=== PATIENT | male | born 1975 | race African-American/Black ===

== ENCOUNTER 2017-07-03 22:01 | Emergency (ER) | payer OTHER ==
[2017-07-03 23:24] LABS: #Basophils 0.1 thou/uL (0.0-0.2); #Eosinphils 0.1 thou/uL (0.0-0.7); #Lymphocytes 1.7 thou/uL (1.20-3.40); #Monocytes 0.4 thou/uL (0.11-0.59); #Neutrophils 7.4 thou/uL (1.40-6.50); %Basophils 0.7 % (0.0-1.0); %Eosinophils 1.2 % (0.0-10.0); %Lymphocytes 17.5 % (21.0-51.0); %Monocytes 4.4 % (0.0-10.0); Hematocrit 49.3 % (42.0-52.0); Mean Platelet Volume 7.8 fL (7.4-10.4); Red Blood Cell (RBC) Count 4.94 mill/uL (4.70-6.10); White Blood Cell (WBC) Count 9.7 thou/uL (4.8-10.8)
[2017-07-03] MEDS ORDERED: Ondansetron HCl/PF 4 MG/2 ML Vial ONE (23:35)
[2017-07-03 23:46] LABS: ALT (SGPT) 18 U/L (8-55); AST (SGOT) 19 U/L (5-34); Alkaline Phosphatase 60 U/L (40-150); Anion Gap 15 mmol/L (10-20); BUN (Urea Nitrogen) 13 mg/dL (8.9-20.6); Bilirubin, Total 0.7 mg/dL (0.2-1.2); Calc. Creatinine Clearance 0 mL/min (70-130); Calcium 8.9 mg/dL (7.8-10.44); Carbon Dioxide 25 mmol/L (22-29); Chloride 106 mmol/L (98-107); Estimated GFR-MDRD Greater than 90; Globulin 3.1 g/dL (2.4-3.5); Lipase 76 U/L (8-78); Protein, Total 6.9 g/dL (6.0-8.3)
== END 2017-07-04 00:43 | disposition home or self-care (01) ==
LOC: ERS 22:01
DX: K52.9 Noninfective gastroenteritis and colitis, unspecified (principal); J44.9 Chronic obstructive pulmonary disease, unspecified; F31.9 Bipolar disorder, unspecified; F41.9 Anxiety disorder, unspecified; F17.210 Nicotine dependence, cigarettes, uncomplicated; Z79.899 Other long term (current) drug therapy
CPT/HCPCS: 36415; 80053; 83690; 85025; 96374; J2405

== ENCOUNTER 2017-07-26 11:13 | Emergency (ER) | payer OTHER ==
[2017-07-26 11:38] LABS: #Basophils 0.1 thou/uL (0.0-0.2); #Eosinphils 0.1 thou/uL (0.0-0.7); #Monocytes 0.4 thou/uL (0.11-0.59); #Neutrophils 2.6 thou/uL (1.40-6.50); %Basophils 2.2 % (0.0-1.0); %Eosinophils 1.5 % (0.0-10.0); %Lymphocytes 48.1 % (21.0-51.0); %Monocytes 6.1 % (0.0-10.0); Hematocrit 52.1 % (42.0-52.0); Mean Platelet Volume 7.9 fL (7.4-10.4); Red Blood Cell (RBC) Count 5.26 mill/uL (4.70-6.10); White Blood Cell (WBC) Count 6.2 thou/uL (4.8-10.8)
[2017-07-26 12:02] LABS: ALT (SGPT) 12 U/L (8-55); AST (SGOT) 17 U/L (5-34); Acetaminophen Less than 6.0 mcg/mL (10.0-30.0); Alkaline Phosphatase 66 U/L (40-150); Anion Gap 11 mmol/L (10-20); BUN (Urea Nitrogen) 8 mg/dL (8.9-20.6); Bilirubin, Total 0.9 mg/dL (0.2-1.2); CK (CPK) 619 U/L (30-200); Calc. Creatinine Clearance 0 mL/min (70-130); Calcium 9.1 mg/dL (7.8-10.44); Carbon Dioxide 28 mmol/L (22-29); Chloride 105 mmol/L (98-107); Estimated GFR-MDRD Greater than 90; Globulin 3.3 g/dL (2.4-3.5); Protein, Total 7.1 g/dL (6.0-8.3); Salicylate Less than 8.0 mg/dL (15.0-30.0)
[2017-07-26 13:12] LABS: Bilirubin Small (Negative); Blood, Urine Negative (Negative); Glucose, Urine (Dipstick) Negative (Negative); Ketone, Urine Trace mg/dL (Negative); Nitrite Negative (Negative); Protein, Urine (Dipstick) 30 mg/dL (Neg-Trace)
[2017-07-26 13:15] LABS: Bacteria/HPF None Seen HPF (None Seen); Hyaline Casts/LPF 0-3 HYALINE CAST LPF (0-3 Hyaline); RBC/HPF 0-3 HPF (0-3); Squamous Epithelial None Seen HPF (0-3); WBC/HPF 0-3 HPF (0-3)
[2017-07-26 13:25] LABS: Amphetamine Not Detected (NotDetected); Methadone Not Detected (NotDetected); Methamphetamine Not Detected (NotDetected)
== END 2017-07-26 21:29 ==
LOC: ERS 11:13
DX: F16.10 Hallucinogen abuse, uncomplicated (principal); F12.10 Cannabis abuse, uncomplicated; R45.851 Suicidal ideations; J44.9 Chronic obstructive pulmonary disease, unspecified; F41.9 Anxiety disorder, unspecified; F31.9 Bipolar disorder, unspecified; F17.210 Nicotine dependence, cigarettes, uncomplicated
CPT/HCPCS: 36415; 80053; 80306; 80307; 81003; 81015; 82550; 84443; 85025; 99285

== ENCOUNTER 2017-09-01 10:51 | Emergency (ER) | payer OTHER ==
[2017-09-01] MEDS ORDERED: Ketorolac Tromethamine 30 MG/ML VIAL ONE (12:28)
--- NOTE | 2017-09-01 14:43 | RAD ---
THREE VIEWS RIGHT FOOT: DATE: 09/01/17. HISTORY: Right foot pain. History of right foot surgery on 08/11/17. FINDINGS: There are postsurgical changes involving the right 1st and 2nd metatarsals likely related to osteotom ies with single screws overlying the distal aspect of the 1st and 2nd metatarsals. No acute fracture or dislocation is seen. Lisfranc joint is normally aligned. Minimal subcutaneous soft tissue swell ing is seen at the dorsal aspect of the forefoot. IMPRESSION: Postsurgical changes related to osteotomies involving the distal 1st and 2nd right metatarsals. No o ther acute osseous abnormality is seen. POS: [facility]
== END 2017-09-01 13:20 | disposition home or self-care (01) ==
LOC: ERS 10:51
DX: M25.474 Effusion, right foot (principal); J44.9 Chronic obstructive pulmonary disease, unspecified; F31.9 Bipolar disorder, unspecified; F41.9 Anxiety disorder, unspecified; F17.210 Nicotine dependence, cigarettes, uncomplicated
CPT/HCPCS: 96372; J1885

== ENCOUNTER 2017-12-07 19:36 | Inpatient (IN) | payer OTHER ==
[2017-12-07 20:08] LABS: #Basophils 0.1 thou/uL (0.0-0.2); #Eosinphils 0.2 thou/uL (0.0-0.7); #Lymphocytes 2.7 thou/uL (1.20-3.40); #Monocytes 0.7 thou/uL (0.11-0.59); %Eosinophils 2.3 % (0.0-10.0); %Lymphocytes 35.2 % (21.0-51.0); %Monocytes 8.5 % (0.0-10.0); Mean Corpuscular HGB CONC 33.5 g/dL (32.0-36.0); Mean Corpuscular Hemoglobin 32.8 pg (27.0-31.0); Mean Corpuscular Volume 98.1 fl (80.0-94.0); Mean Platelet Volume 8.5 fL (7.4-10.4); Platelet Count 169 thou/uL (130-400); RBC Distribution Width 12.3 % (11.5-14.5); Red Blood Cell (RBC) Count 4.28 mill/uL (4.70-6.10); White Blood Cell (WBC) Count 7.6 thou/uL (4.8-10.8)
[2017-12-07] MEDS ORDERED: Ondansetron HCl/PF 4 MG/2 ML Vial IV PRN (20:09)
[2017-12-07] MEDS ORDERED: Acetaminophen 325 MG TAB PO PRN (20:09)
[2017-12-07] MEDS ORDERED: Fentanyl 100 MCG/2 ML VIAL ONE (20:12)
[2017-12-07] MEDS ORDERED: RENALLY ADJUST ANTIBIOTICS FS PRN (20:15)
[2017-12-07 20:30] LABS: ALT (SGPT) 7 U/L (8-55); AST (SGOT) 13 U/L (5-34); Albumin 4.1 g/dL (3.5-5.0); Alkaline Phosphatase 76 U/L (40-150); Anion Gap 11 mmol/L (10-20); BUN (Urea Nitrogen) 11 mg/dL (8.9-20.6); Bilirubin, Total 0.6 mg/dL (0.2-1.2); CRP (Inflammatory) 4.75 mg/dL (= or < 0.5); Calc. Creatinine Clearance 0 mL/min (70-130); Calcium 9.6 mg/dL (7.8-10.44); Carbon Dioxide 27 mmol/L (22-29); Chloride 107 mmol/L (98-107); Estimated GFR-MDRD Greater than 90; Globulin 3.8 g/dL (2.4-3.5); Glucose 92 mg/dL (70-105); Protein, Total 7.9 g/dL (6.0-8.3); Sodium 141 mmol/L (136-145)
[2017-12-07] MEDS: HYDROcodone/Acetaminophen 5/325 mg Tablet PO PRN ×2 (22:01→22:10)
--- NOTE | 2017-12-07 22:05 | RAD ---
PORTABLE AP CHEST X-RAY 12/07/17 HISTORY: Preoperative evaluation. COMPARISON: 05/15/17. FINDINGS: Cardiac silhouette is magnified by projection. Pulmonary vasculature is within normal limits. The zohra gs are clear. There has been no interval change from prior exam. IMPRESSION: No acute cardiopulmonary process. POS: [facility]
--- NOTE | 2017-12-07 22:08 | RAD ---
THREE VIEWS LEFT HAND 12/07/17 HISTORY: Left hand pain and swelling for three days. COMPARISON: 07/18/16. FINDINGS: There is no evidence of a fracture, dislocation, or other osseous abnormality. There has been no inte rval change when compared to the prior exam. IMPRESSION: No acute osseous abnormality left hand. POS: [facility]
--- NOTE | 2017-12-07 22:16 | HP ---
CHIEF COMPLAINT: Left hand pain. HISTORY OF PRESENT ILLNESS: Mr. Lyman is a 42-year-old male who has developed a 1 day history of wo rsening left fourth digit and palm pain. He developed swelling and erythema of the digit. He has a history of thenar abscess approximately 2 years ago which was treated with I and D. He says this fee ls similar to his left hand infection. He denies any injury or wound to the hand, no recent insect b ites he reports. He has had low grade fever he reports at home. PAST MEDICAL HISTORY: Bipolar disorder, previous abscess and asthma or mild COPD. SOCIAL HISTORY: The patient denies alcohol or drug use. He smokes cigarettes daily. FAMILY MEDICAL HISTORY: Noncontributory. MEDICATIONS: The patient is not on any medications currently. ALLERGIES: Negative. REVIEW OF SYSTEMS: Positive for left hand pain. PHYSICAL EXAMINATION: VITAL SIGNS: The patient's vital signs stable. He is afebrile. He is normotensive. GENERAL: He is alert, sitting upright in no apparent distress. RESPIRATORY: Breathing comfortably. ABDOMEN: Soft, nontender, nondistended. MUSCULOSKELETAL: The patient's left hand has swelling and erythema over the palmar aspect of the fou rth digit. There is fusiform swelling between the MCP joint and PIP joint. He has pain to palpation and pain with motion. He has tenderness along the palm as well. Two second capillary refill. No a ctive wound drainage. IMAGES: X-rays of the hand are negative. LABORATORY STUDIES: Include white blood cell count which is 7.6. Remaining labs are pending. IMPRESSION: Left hand abscess with possible underlying flexor tenosynovitis. PLAN: At this point, the patient will need to go to the operating room tomorrow morning for irrigati on and debridement of the hand abscess and flexor tendon. He will be started on vancomycin and Rocep hin. He will have adequate pain control. He will elevate the hand. He will be n.p.o. at midnight. He is aware of the severity of his condition and all risks have been reviewed. Risks do include fur ther infection, wound complication, nerve or vascular injury, loss of digit and others.
[2017-12-07 22:21] VITALS: BMI 29.2
[2017-12-08] MEDS: Ketorolac Tromethamine 30 MG/ML VIAL IVP SCH ×5 (00:03→23:32)
[2017-12-08] MEDS ORDERED: Ondansetron HCl/PF 4 MG/2 ML Vial ONE (07:08)
[2017-12-08] MEDS ORDERED: Dexamethasone 20 MG/5 ML VIAL ONE (07:08)
[2017-12-08] MEDS ORDERED: PROPOFOL 200 MG/20 ML VIAL ONE (07:08)
[2017-12-08] MEDS ORDERED: Lidocaine 1% PF 5 ML VIAL ONE (07:08)
[2017-12-08] MEDS ORDERED: FLU VACC QS2017-18 36 mo. & older 0.5 ML SYRINGE IM ONE (09:00)
[2017-12-08] MEDS: Vancomycin HCl 1.5 GM in Sodium Chloride 0.9% 250 ML 300 ML IVPB SCH ×2 (09:03→21:41)
[2017-12-08] MEDS ORDERED: Fentanyl 250 MCG/5 ML VIAL ONE ×2 (09:44→10:35)
[2017-12-08] MEDS ORDERED: Midazolam HCl 2 mg/2 ml Vial ONE ×2 (09:44→10:35)
[2017-12-08] MEDS ORDERED: Neomycin-Polymyxin 1 ML AMP ONE ×2 (09:46→10:36)
[2017-12-08] MEDS ORDERED: Bupivacaine 0.25% HCL 30 ML VIAL ONE ×2 (09:46→10:36)
[2017-12-08] MEDS ORDERED: Ondansetron HCl/PF 4 MG/2 ML Vial IVP PRN (11:39)
[2017-12-08] MEDS ORDERED: Promethazine HCl 25 MG/ML VIAL IM PRN (11:39)
[2017-12-08] MEDS ORDERED: Promethazine HCl 25 MG/ML VIAL SLOW IVP PRN (11:39)
--- NOTE | 2017-12-08 15:40 | OP ---
DATE OF PROCEDURE: 12/08/2017 OPERATION: Left fourth finger abscess, irrigation and debridement. PREOPERATIVE DIAGNOSIS: Left fourth finger abscess. POSTOPERATIVE DIAGNOSIS: Left fourth finger abscess. COMPLICATIONS: None. ESTIMATED BLOOD LOSS: Minimal. SURGEON: Michele Rivera M.D. ANESTHESIA: General plus local. IMPLANTS: None. INDICATIONS FOR PROCEDURE: Mr. Lyman is a 42-year-old male who has a heavy smoking history. He was found to have an abscess on the 4th palmar surface of the finger as well as possible underlying flex or tenosynovitis. He was admitted to the hospital and started on intravenous antibiotics. He has fa iled to improve and has been indicated now for irrigation and debridement in the operating room. Ris ks have been reviewed and he has elected to proceed with the operation. DESCRIPTION OF PROCEDURE: Mr. Lyman was identified in the preoperative holding area. His correct e xtremity was marked. He was carried to the operating room. He was positioned supine. General anest hesia was induced. Local anesthetic was injected about the finger. The hand was prepped and draped in sterile fashion. At this point, we proceeded with an incision centered over the palmar surface of the fourth finger. We created a Z-type incision and raised a small flap. We encountered gross puru lence. This was cultured. We evacuated the purulent material and thoroughly irrigated with copious lavage. We excisionally removed any nonviable appearing subcutaneous tissue. We then opened the ten don sheath and this was thoroughly irrigated as well. There was not significant material in the tend on sheath. We packed the wound and loosely closed with a 4-0 nylon suture. A sterile dressing was a pplied. The patient was taken to the recovery room in good condition at this point without complicat ion.
[2017-12-08] MEDS: HYDROcodone/Acetaminophen 5/325 mg Tablet PO PRN ×2 (17:33→21:42)
[2017-12-08] MEDS: cefTRIAXone\\ROCEPHIN 1 GM, Syringe 0.4 ML in Sterile Water 9.6 ML SLOW IVP SCH (19:28)
[2017-12-09] MEDS: Fentanyl 100 MCG/2 ML VIAL SLOW IVP PRN (02:04)
[2017-12-09 05:36] LABS: #Lymphocytes 2.2 thou/uL (1.20-3.40); #Monocytes 0.6 thou/uL (0.11-0.59); #Neutrophils 7.8 thou/uL (1.40-6.50); %Basophils 0.2 % (0.0-1.0); %Eosinophils 0.1 % (0.0-10.0); %Lymphocytes 20.5 % (21.0-51.0); %Monocytes 5.9 % (0.0-10.0); %Neutrophils 73.4 % (42.0-75.0); Hemoglobin 13.8 g/dL (14.0-18.0); Mean Corpuscular HGB CONC 33.9 g/dL (32.0-36.0); Mean Corpuscular Hemoglobin 33.2 pg (27.0-31.0); Mean Corpuscular Volume 97.8 fl (80.0-94.0); Mean Platelet Volume 8.7 fL (7.4-10.4); Platelet Count 174 thou/uL (130-400); RBC Distribution Width 12.2 % (11.5-14.5); Red Blood Cell (RBC) Count 4.17 mill/uL (4.70-6.10); White Blood Cell (WBC) Count 10.7 thou/uL (4.8-10.8)
[2017-12-09] MEDS: HYDROcodone/Acetaminophen 5/325 mg Tablet PO PRN ×2 (06:05→16:08)
[2017-12-09 08:33] LABS: Vancomycin, Trough 13.3 ug/mL
[2017-12-09] MEDS: Vancomycin HCl 1.5 GM in Sodium Chloride 0.9% 250 ML 300 ML IVPB SCH ×2 (09:44→21:15)
[2017-12-09] MEDS: traMADol HCl 50 MG TAB PO PRN ×2 (09:44→21:16)
[2017-12-09] MEDS: cefTRIAXone\\ROCEPHIN 1 GM, Syringe 0.4 ML in Sterile Water 9.6 ML SLOW IVP SCH (20:51)
[2017-12-10] MEDS: HYDROcodone/Acetaminophen 5/325 mg Tablet PO PRN ×3 (06:32→18:24)
[2017-12-10] MEDS: Vancomycin HCl 1.5 GM in Sodium Chloride 0.9% 250 ML 300 ML IVPB SCH ×2 (08:53→20:55)
[2017-12-10] MEDS ORDERED: VANCOMYCIN IVPB PRN (09:19)
[2017-12-10] MEDS: Fentanyl 100 MCG/2 ML VIAL SLOW IVP PRN (10:18)
--- NOTE | 2017-12-10 13:00 | CON ---
DATE OF CONSULTATION: 12/10/2017 REASON FOR CONSULTATION: Tenosynovitis. HISTORY OF PRESENT ILLNESS: A 42-year-old patient who has a history of previous left hand infection in 07/2016. The patient underwent I&D of an abscess in the tendon space. No evidence of tenosynovit is was identified at that time. This time he presents with left hand pain at the ring finger. There was not an obvious injury to the site except that he noticed what he describes as a nodular region i n the volar aspect of the proximal interphalangeal joint and distal, which he proceeded to try to scr atch on it, subsequently, developed inflammatory changes. He was not treated with any specific inter ventions and eventually was admitted [address] Rivera performed a surgical debridement and there was evidence of gross purulence localized to the left fourth finger. The tendon sheath was rem emilia and there was no evidence of significant material in the tendon sheath so this appears to be a l imited process to the soft tissues without involvement of tendon. Currently, he is feeling well othe rwise, no headaches, visual symptoms, sore throat, odynophagia, dysphagia, no cough or sputum product ion, no chest pain, no abdominal pain or diarrhea. No genitourinary symptoms. No other joint sympto ms or neurological symptoms. PAST MEDICAL HISTORY: Bipolar disorder, hand abscess, asthma. SOCIAL HISTORY: He lives with his mother in [place]. Smokes daily. No drug use or alcoholic bevera ge use. FAMILY HISTORY: Noncontributory. MEDICATIONS: Tylenol, [place], ceftriaxone, Sublimaze, tramadol and vancomycin. ALLERGIES: None. PHYSICAL EXAMINATION: VITAL SIGNS: Essentially normal temperature, T-max 99.4, blood pressure 116/62, pulse 47, respiratio ns 18, O2 saturation 98%. GENERAL: He is in no distress, oriented. HEENT: Ocular movements conjugate. Oral cavity with still quite a few teeth in place with quite a b it of decay and gum disease. No thrush. NECK: Supple, no jugular vein distention. LUNGS: Clear to auscultation and percussion. HEART: S1, S2, regular rate. No S3, S4. ABDOMEN: Soft, not distended or tender. No ascites. No bladder distention. EXTREMITIES: No joint inflammatory activity. NEUROLOGIC: Nonfocal including cognitive function. LABORATORY DATA: White cell count 7.6 and 10.7, hemoglobin 13.8, platelets 174 with a normal differe ntial. Sodium 141, creatinine 1.05. Transaminase is normal, albumin 4.1, globulin 3.8. Vancomycin trough 13.3 and microbiology with preliminary gram stain with many gram positive cocci in pairs and m oderate gram negative rods. Blood culture negative thus far. There is a hand x-ray which shows no osseous abnormality left hand. ASSESSMENT: Left hand ring finger abscess, status post incision and drainage. We will wait for the final identification of the organism, so we can plan for discharge on oral antimicrobial therapy for anywhere from 10-14 days. Check HIV and hepatitis C serology.
[2017-12-10 14:27] LABS: HIV (1/2) Antibody/Antigen Non-Reactive (NonReactive); HIV 1/2 INDEX 0.05 S/CO (<1.00); Hep C IgG Ab Non-Reactive (NonReactive); Hep C Index 0.18 S/CO (0-0.79)
[2017-12-10] MEDS: cefTRIAXone\\ROCEPHIN 1 GM, Syringe 0.4 ML in Sterile Water 9.6 ML SLOW IVP SCH (20:55)
[2017-12-10] MEDS: traMADol HCl 50 MG TAB PO PRN (20:55)
[2017-12-11] MEDS: HYDROcodone/Acetaminophen 5/325 mg Tablet PO PRN ×4 (07:02→22:30)
--- NOTE | 2017-12-11 15:59 | PRG ---
DATE OF SERVICE: 12/11/2017 SUBJECTIVE: Feeling well. No minor hand pain. No respiratory symptoms, abdominal pain or diarrhea and genitourinary symptoms. PHYSICAL EXAMINATION: VITAL SIGNS: Normal. GENERAL: Awake, alert. LUNGS: Clear. HEART: S1, S2 regular rate. EXTREMITIES: Hand covered with dressing, which was not removed. Microbiology with possible anaerobes retrieved from site. ASSESSMENT AND DISCUSSION: Left hand ring finger abscess, status post I&D looks like will have skin organisms plus possible anaerobes. Switch him to Rocephin and Flagyl. Consider discharge planning o n oral Augmentin or Keflex plus Flagyl. Follow up in the outpatient setting.
[2017-12-11] MEDS: metroNIDAZOLE 500 MG TAB PO SCH (19:47)
[2017-12-12] MEDS: HYDROcodone/Acetaminophen 5/325 mg Tablet PO PRN ×2 (06:34→11:05)
[2017-12-12] MEDS: metroNIDAZOLE 500 MG TAB PO SCH ×2 (07:55→15:32)
[2017-12-12 08:45] LABS: #Basophils 0.1 thou/uL (0.0-0.2); #Eosinphils 0.2 thou/uL (0.0-0.7); #Lymphocytes 2.4 thou/uL (1.20-3.40); #Monocytes 0.6 thou/uL (0.11-0.59); #Neutrophils 2.7 thou/uL (1.40-6.50); %Basophils 1.1 % (0.0-1.0); %Eosinophils 2.8 % (0.0-10.0); %Lymphocytes 40.1 % (21.0-51.0); %Monocytes 10.9 % (0.0-10.0); %Neutrophils 45.2 % (42.0-75.0); Hemoglobin 13.8 g/dL (14.0-18.0); Mean Corpuscular HGB CONC 33.5 g/dL (32.0-36.0); Mean Corpuscular Hemoglobin 32.6 pg (27.0-31.0); Mean Corpuscular Volume 97.4 fl (80.0-94.0); Mean Platelet Volume 8.3 fL (7.4-10.4); Platelet Count 181 thou/uL (130-400); RBC Distribution Width 12.1 % (11.5-14.5); Red Blood Cell (RBC) Count 4.22 mill/uL (4.70-6.10); White Blood Cell (WBC) Count 5.9 thou/uL (4.8-10.8)
[2017-12-12 16:06] VITALS: BP 123/73; TEMP 98.2
--- NOTE | 2017-12-13 15:39 | DIS ---
DATE OF ADMISSION: 12/07/2017 DATE OF DISCHARGE: 12/12/2017 HOSPITAL COURSE: Mr. Lyman is a 42-year-old male who was admitted with a left hand abscess. He was found to have flexor tenosynovitis of the finger. He was taken to the operating room after he faile d to improve on intravenous antibiotics. He had irrigation and debridement. He did well postoperati vely. His infection responded to appropriate antibiotic treatment. Dr. Parsons was consulted to guide this. The patient went home with packing daily in the wounds. He had a PICC line placed. FOLLOWUP INSTRUCTIONS: The patient will continue his wound care. He will follow up with Dr. Bain on in 10-[address] Parsons throughout his antibiotic course.
--- NOTE | 2017-12-14 15:13 | EKG ---
Test Reason : Blood Pressure : / mmHG Vent. Rate : 070 BPM Atrial Rate : 070 BPM P-R Int : 148 ms QRS Dur : 094 ms QT Int : 388 ms P-R-T Axes : 040 045 019 degrees QTc Int : 419 ms Normal sinus rhythm Normal ECG Confirmed by ANTHONY MALDONADO ([id number]), supervising film or videotape editor LAURA HUANG ([id number]) on 12/14/2017 3:12:50 PM Referred By: Confirmed By:ANTHONY MALDONADO
== END 2017-12-12 17:00 | disposition home health service (06) | DRG 581 ==
LOC: ERS 19:36 → SURG B 20:13 → OBSVTOIN 20:13
PROVIDERS: ADMIT Orthopaedic Surgery; ATTEND Orthopaedic Surgery
PROC: 0JBK0ZZ Excision of Left Hand Subcutaneous Tissue and Fascia, Open Approach (ICD-10-PCS; principal; 2017-12-08)
PROC: 0LJX0ZZ Inspection of Upper Tendon, Open Approach (ICD-10-PCS; 2017-12-08)
DX: L02.512 Cutaneous abscess of left hand (principal); F17.210 Nicotine dependence, cigarettes, uncomplicated; F31.9 Bipolar disorder, unspecified; J45.909 Unspecified asthma, uncomplicated; Z23 Encounter for immunization
CPT/HCPCS: 36415; 71045; 80053; 80202; 83735; 85025; 86140; 86803; 87040; 87070; 87205; 87389; 90471; 90682; 90732; 93005; 96374; 96375; 99406; A4216; G0008; G0009; J0696; J1100; J1885; J2001; J2250; J2270; J2405; J2704; J3010; J3370; J7050; Q2036; S0020

== ENCOUNTER 2019-04-07 10:01 | Emergency (ER) | payer OTHER ==
[~2019-04-07 10:01] MED LIST: ISOVUE-370 76%-LOCM 1 ML ONE
--- NOTE | 2019-04-07 11:09 | CT ---
CT FACIAL BONES WITHOUT CONTRAST: Date: 04/07/19 HISTORY: Right earlobe pain, onset 4-5 days ago. Patient states findings started as small bump. Blood discha rge after the region popped. COMPARISON: None. FINDINGS: Visualized brain parenchyma is unremarkable. There is mild enhancement involving the mucosa at the level of the hypopharynx. There is mild fullnes s of the lingual tonsils and adenoid lymphoid tissue. There is also mild fullness of the palatine ton sils. Aerodigestive tract is patent. Epiglottis has a normal caliber. Preepiglottic fat is preserved. Midline fatty raphe of the tongue is unremarkable. There is no prevertebral soft tissue swelling. Symmetric attenuation of the parotid and submandibular glands. Symmetric attenuation of the sternocleidomastoid muscles. There is appropriate enhancement of the visualized cervical carotid and vertebral arteries. Upper cervical spine vertebral body height is maintained. There is no fracture. Adequate aeration of the mastoid air cells. Bilateral mucus retention cysts in the maxillary sinuses, right greater than left. Pterygopalatine fossae are symmetric. There is also mucus retention cyst in left sphenoid sinus. Coronal images demonstrate bilateral ostiomeatal complex patency. Left-sided Celeste cell noted. Nasal septum intact and midline. Sepideh bullosa involving the left superior turbinate. Osseous margins of the maxilla and mandible are appropriately located and intact. Multiple dental car ies are identified. There are periapical lucencies involving the right maxillary molar teeth. The pos sibility of periapical abscesses raised. There is a small focus of air in the gingiva, adjacent to th e anteriormost right molar tooth. Drainable abscess is not appreciated. No significant induration or inflammatory change with regards to the left/right facial soft tissues. IMPRESSION: 1. Nonspecific lymphoid hyperplasia. Correlate clinically. 2. Sinus disease as described above. 3. Multiple dental caries and periapical lucencies compatible with periodontal disease. Correlate cl inically. 4. Small focus of air in the right gingival tissues adjacent to the anteriormost right maxillary too th. Findings may represent normal air attenuation. There is no evidence of drainable abscess. POS: [facility]
[2019-04-07] MEDS ORDERED: Clindamycin/D5W 600 mg/50 ml Premix Bag ONE (11:12)
[2019-04-07] MEDS ORDERED: Lidocaine 1% (PF) 30 ML VIAL ONE (11:24)
[2019-04-07 11:26] LABS: #Basophils 0.1 thou/uL (0.0-0.2); #Eosinphils 0.1 thou/uL (0.0-0.7); #Lymphocytes 2.5 thou/uL (1.20-3.40); #Monocytes 0.9 thou/uL (0.11-0.59); #Neutrophils 5.9 thou/uL (1.40-6.50); %Basophils 0.9 % (0.0-1.0); %Eosinophils 0.6 % (0.0-10.0); %Lymphocytes 26.4 % (21.0-51.0); %Monocytes 9.1 % (0.0-10.0); Hemoglobin 15.3 g/dL (14.0-18.0); Mean Corpuscular HGB CONC 34.2 g/dL (32.0-36.0); Mean Corpuscular Hemoglobin 32.7 pg (27.0-31.0); Mean Corpuscular Volume 95.7 fL (78.0-98.0); Mean Platelet Volume 10.2 fL (7.4-10.4); Platelet Count 114 thou/uL (130-400); RBC Distribution Width 12.8 % (11.5-14.5); Red Blood Cell (RBC) Count 4.68 mill/uL (4.70-6.10); White Blood Cell (WBC) Count 9.4 thou/uL (4.8-10.8)
[2019-04-07] MEDS ORDERED: Acetaminophen 500 MG TAB ONE (12:30)
== END 2019-04-07 12:22 | disposition home or self-care (01) ==
LOC: ERS 10:01
DX: H60.02 Abscess of left external ear (principal); F31.9 Bipolar disorder, unspecified; F17.210 Nicotine dependence, cigarettes, uncomplicated
CPT/HCPCS: 69000; 70487; 85025; 96365; J2001; J3490; Q9966

== ENCOUNTER 2019-11-13 11:37 | Emergency (ER) | payer OTHER ==
[2019-11-13 13:35] LABS: #Basophils 0.1 thou/uL (0.0-0.2); #Eosinphils 0.1 thou/uL (0.0-0.7); #Lymphocytes 3.3 thou/uL (1.20-3.40); #Monocytes 0.7 thou/uL (0.11-0.59); #Neutrophils 2.7 thou/uL (1.40-6.50); %Basophils 1.3 % (0.0-1.0); %Eosinophils 2.2 % (0.0-10.0); %Monocytes 9.7 % (0.0-10.0); %Neutrophils 38.8 % (42.0-75.0); Hemoglobin 16.2 g/dL (14.0-18.0); Mean Corpuscular HGB CONC 33.9 g/dL (32.0-36.0); Mean Corpuscular Hemoglobin 32.8 pg (27.0-31.0); Mean Corpuscular Volume 96.9 fL (78.0-98.0); Mean Platelet Volume 9.2 fL (7.4-10.4); Platelet Count 153 thou/uL (130-400); RBC Distribution Width 13.3 % (11.5-14.5); Red Blood Cell (RBC) Count 4.93 mill/uL (4.70-6.10)
[2019-11-13 13:56] LABS: ALT (SGPT) 10 U/L (8-55); AST (SGOT) 13 U/L (5-34); Albumin 3.4 g/dL (3.5-5.0); Alkaline Phosphatase 64 U/L (40-110); Anion Gap 11 mmol/L (10-20); BUN (Urea Nitrogen) 9 mg/dL (8.9-20.6); Bilirubin, Total 0.6 mg/dL (0.2-1.2); CK (CPK) 250 U/L (30-200); Calc. Creatinine Clearance 0 mL/min (70-130); Calcium 8.5 mg/dL (7.8-10.44); Carbon Dioxide 29 mmol/L (22-29); Chloride 109 mmol/L (98-107); Estimated GFR-MDRD 85; Globulin 2.6 g/dL (2.4-3.5); Glucose 74 mg/dL (70-105); Potassium 4.4 mmol/L (3.5-5.1); Sodium 145 mmol/L (136-145)
--- NOTE | 2019-11-14 07:48 | CON ---
DATE OF CONSULTATION: CHIEF COMPLAINT: Left middle finger pain. REASON FOR CONSULTATION: Left middle finger infection. CONSULTING PHYSICIAN: Dr. Gonzalez. HISTORY OF PRESENT ILLNESS: Mr. Lyman is a 44-year-old right-hand dominant gentleman, presented to the emergency department with left middle finger pain. Approximately one day ago, he noticed swelling and pain in the left middle finger, middle phalanx. Given his ongoing escalating pain and swelling, he presented to the emergency department today. Orthopedics was consulted secondary to possible abscess of the left middle finger. The patient was seen and evaluated in the emergency room, demonstrated swelling to the middle phalanx. He states he denies any trauma to the left middle finger. Denies any pokes. Denies any previous open wounds. This is a spontaneous onset of swelling in the left middle finger. REVIEW OF SYSTEMS: Complete system review is negative with exception of left middle finger pain. ALLERGIES: NONE. PAST MEDICAL HISTORY: COPD, asthma, hypertension. SOCIAL HISTORY: Admits to smoking, alcohol. No illicit drug use. Does not currently work. PAST SURGICAL HISTORY: 1. Left hand surgery for infection. 2. Bilateral foot and ankle surgery. FAMILY HISTORY: Noncontributory. PHYSICAL EXAMINATION: GENERAL: Alert and oriented x3, in no acute distress. RESPIRATORY: Nonlabored. CARDIOVASCULAR: Regular rate. PSYCHIATRIC: Normal mood and affect. MUSCULOSKELETAL: Evaluation of the left middle finger demonstrates slight swelling of the left middle phalanx. There is no obvious fluctuance noted. There is no tenderness along the flexor tendon of the left middle finger. There is no fusiform swelling of the digit. No pain on passive stretch of the digit as well. Signs and symptoms are not consistent with flexor tenosynovitis. NEUROLOGIC: He has sensation intact to light touch in the radial and ulnar aspect of the left middle finger. No additional open wounds on the left hand are noted. No additional swelling along the left hand. NEUROVASCULAR: He has sensation intact to light touch, radial, ulnar, and median nerve distribution. Cap refill is less than 2 seconds in all digits. LABORATORY DATA: CRP is 0.97, ESR is 2. White blood cell count is normal at 7. ASSESSMENT AND PLAN: A 44-year-old male with left middle finger pain likely secondary to very superficial and early infection. He has no signs of flexor tenosynovitis. He has no obvious fluctuance on exam. I do not believe he warrants surgical intervention at this time. My recommendation of oral antibiotics including Bactrim and Keflex were explained to the emergency department and the physician. He will be discharged on Bactrim and Keflex. We will see him in clinic in a few days' time. He was given warnings if his pain escalates, the swelling progresses, or redness progresses, he is to return to the emergency department immediately. The patient verbalized understanding of this and is in agreement with our plan. Job ID: [id number]
== END 2019-11-13 15:34 | disposition home or self-care (01) ==
LOC: ERS 11:37
DX: L08.9 Local infection of the skin and subcutaneous tissue, unspecified (principal); J44.9 Chronic obstructive pulmonary disease, unspecified; F31.9 Bipolar disorder, unspecified; E11.9 Type 2 diabetes mellitus without complications; F17.210 Nicotine dependence, cigarettes, uncomplicated
CPT/HCPCS: 36415; 80053; 82550; 85025; 85652; 86140; 99283

== ENCOUNTER 2021-02-16 14:46 | Emergency (ER) | payer OTHER | END 2021-02-16 17:10 | disposition home or self-care (01) | LOC: ERS 14:46 | DX: L03.011 Cellulitis of right finger (principal); J44.9 Chronic obstructive pulmonary disease, unspecified; J45.909 Unspecified asthma, uncomplicated; F17.210 Nicotine dependence, cigarettes, uncomplicated ==

== ENCOUNTER 2022-06-15 11:53 | Emergency (ER) | payer OTHER ==
[2022-06-15 12:43] LABS: #Lymphocytes 1.8 thou/uL (1.20-3.40); #Neutrophils 4.3 thou/uL (1.40-6.50); %Basophils 0.4 % (0.0-1.0); %Eosinophils 0.4 % (0.0-10.0); %Lymphocytes 25.8 % (21.0-51.0); %Monocytes 13.6 % (0.0-10.0); %Neutrophils 59.9 % (42.0-75.0); Hemoglobin 14.4 g/dL (14.0-18.0); Mean Corpuscular HGB CONC 32.3 g/dL (32.0-36.0); Mean Corpuscular Hemoglobin 32.5 pg (27.0-31.0); Mean Platelet Volume 8.2 fL (7.4-10.4); Platelet Count 167 thou/uL (130-400); RBC Distribution Width 12.3 % (11.5-14.5); Red Blood Cell (RBC) Count 4.44 mill/uL (4.70-6.10); White Blood Cell (WBC) Count 7.1 thou/uL (4.8-10.8)
[2022-06-15 12:59] LABS: ALT (SGPT) 14 U/L (8-55); AST (SGOT) 17 U/L (5-34); Albumin 3.5 g/dL (3.5-5.0); Alkaline Phosphatase 59 U/L (40-110); Anion Gap 9 mmol/L (10-20); BUN (Urea Nitrogen) 10 mg/dL (8.9-20.6); Bilirubin, Total 0.4 mg/dL (0.2-1.2); Calc. Creatinine Clearance 0 mL/min (70-130); Calcium 9.2 mg/dL (7.8-10.44); Carbon Dioxide 29 mmol/L (22-29); Chloride 106 mmol/L (98-107); Estimated GFR 64; Glucose 85 mg/dL (70-105); Potassium 4.3 mmol/L (3.5-5.1); Protein, Total 6.5 g/dL (6.0-8.3); Sodium 140 mmol/L (136-145)
[2022-06-15] MEDS ORDERED: Ondansetron PF 4 MG/2 ML Vial ONE (13:07)
[2022-06-15 13:59] LABS: Bacteria/HPF None Seen HPF (None Seen); Bilirubin Negative (Negative); Blood, Urine 2+ (Negative); Clarity Extra Turbid (Clear); Glucose, Urine (Dipstick) Normal (Negative); Ketone, Urine Negative (Negative); Leukocyte Negative Leu/uL (Negative); Nitrite Negative (Negative); Protein, Urine (Dipstick) 30 mg/dL (Neg-Trace); Specific Gravity, Urine 1.033 (1.002-1.036); Squamous Epithelial 0-3 HPF (0-3); WBC/HPF None Seen HPF (0-3); pH, Urine 5.5 (5.0-9.0)
[2022-06-15] MEDS ORDERED: Morphine 4 MG/ML VIAL ONE (14:32)
[2022-06-15] MEDS ORDERED: Ketorolac Tromethamine 30 MG/ML VIAL ONE (14:33)
== END 2022-06-15 14:58 | disposition home or self-care (01) ==
LOC: ERS 11:53
DX: N13.2 Hydronephrosis with renal and ureteral calculous obstruction (principal); J44.9 Chronic obstructive pulmonary disease, unspecified; F17.210 Nicotine dependence, cigarettes, uncomplicated
CPT/HCPCS: 74176; 80053; 81003; 81015; 83880; 85025; 86140; 87086; 96374; 96375; J1885; J2270; J2405